=== PATIENT | female | born 1965 | race Caucasian/White ===

== ENCOUNTER → 2019-01-21 | Outpatient (CLI) | payer BC ==
[~2019-01-21] MED LIST: HYDACE5 PO; IBUP400 PO; LEVFLO250 PO; MULVITA PO; OPIBELS PR; PHENA200 PO; RXHYDACE PO; RXPROM25 PO; SULTRIDS PO
[2019-01-23 15:07] LABS: HPV 16 Negative (Negative); HPV 18 Negative (Negative); HPV OTHER HR TYPES Negative (Negative)
== END | disposition home or self-care (01) ==
LOC: LAB SHORT 17:43 → LAB 17:43
PROVIDERS: Obstetrics & Gynecology Gynecology
DX: Z12.4 Encounter for screening for malignant neoplasm of cervix (principal)
CPT/HCPCS: 87624; G0123

== ENCOUNTER 2020-09-06 07:42 | Day surgery (SDC) | payer BC ==
[~2020-09-06] VITALS: Ht 175.3 cm; Wt 69.5 kg
[~2020-09-06 07:42] MED LIST changes: +CALCIUM-MAGNES1 EAC9 PO; +FISH OIL 1,2001 EAC1 PO; +MULTIPLE VITAM1 EACH PO; +PROGESTERONE200 M1 PO; +PSYLLIUM FIBER0.4 GM PO; +VELIVET PO; +VITAMIN D325 MC3 PO
== END 2020-09-06 11:08 | disposition home or self-care (01) ==
LOC: ORSCSDS 07:42
PROVIDERS: Student in an Organized Health Care Education/Training Program
PROC: 0DBL8ZX Excision of Transverse Colon, Via Natural or Artificial Opening Endoscopic, Diagnostic (ICD-10-PCS; principal; 2020-09-06 09:00)
PROC: 0DBP8ZX Excision of Rectum, Via Natural or Artificial Opening Endoscopic, Diagnostic (ICD-10-PCS; principal; 2020-09-06 09:00)
PROC: 0DBK8ZX Excision of Ascending Colon, Via Natural or Artificial Opening Endoscopic, Diagnostic (ICD-10-PCS; principal; 2020-09-06 09:00)
PROC: 0DBN8ZX Excision of Sigmoid Colon, Via Natural or Artificial Opening Endoscopic, Diagnostic (ICD-10-PCS; principal; 2020-09-06 09:00)
DX: Z12.11 Encounter for screening for malignant neoplasm of colon (principal); D12.2 Benign neoplasm of ascending colon; D12.3 Benign neoplasm of transverse colon; D12.5 Benign neoplasm of sigmoid colon; D12.8 Benign neoplasm of rectum; K57.30 Diverticulosis of large intestine without perforation or abscess without bleeding; Z80.0 Family history of malignant neoplasm of digestive organs; F41.9 Anxiety disorder, unspecified
CPT/HCPCS: 84703; 88305; J2704; J7120

== ENCOUNTER 2021-04-27 07:02 | Day surgery (SDC) | payer BC ==
[2021-04-24 09:35] LABS: BASOPHILS ABSOLUTE AUTO 0.08 K/mm3 (0.00-0.23); BASOPHILS PERCENT AUTO 1 % (0-2); EOSINOPHILS ABSOLUTE AUTO 0.14 K/mm3 (0.00-0.68); EOSINOPHILS PERCENT AUTO 1 % (0-6); Hemoglobin 15.5 g/dL (11.5-16.0); IMMATURE GRAN ABSOLUTE AUTO 0.05 K/mm3 (0.00-0.10); IMMATURE GRAN PERCENT AUTO 0 % (0-1); LYMPHOCYTES PERCENT AUTO 22 % (21-46); MONOCYTES ABSOLUTE AUTO 1.12 K/mm3 (0.16-1.47); MONOCYTES PERCENT AUTO 9 % (4-13); Mean Corpuscular HGB 32.9 pg (26.0-34.0); Mean Corpuscular HGB Conc 33.7 g/dL (31.5-36.5); Mean Corpuscular Volume 98 fL (80-100); Mean Platelet Volume 10.5 fL (9.1-12.4); NEUTROPHILS ABSOLUTE AUTO 8.15 K/mm3 (1.96-9.15); NEUTROPHILS PERCENT AUTO 67 % (41-73); Platelet Count 279 K/mm3 (150-400); RDW Coefficient Variation 13.3 % (11.7-14.2); RDW Standard Deviation 48.2 fL (35.1-46.3); Red Blood Cell Count 4.71 M/mm3 (3.80-5.20); White Blood Cell Count 12.24 K/mm3 (4.00-11.30)
[2021-04-24 11:21] LABS: Anion Gap 8 mmol/L (6-16); Blood Urea Nitrogen 7 mg/dL (8-24); Bun/Creatinine Ratio 9.7 (12.0-20.0); CO2, Blood 29 mmol/L (21-32); Calcium, Blood 9.7 mg/dL (8.5-10.1); Chloride, Blood 103 mmol/L (98-108); Creatinine, Blood 0.72 mg/dL (0.40-1.00); Glomerular Filtration Rate >60 (60-); Glucose, Blood 99 mg/dL (70-99); Potassium, Blood 3.8 mmol/L (3.5-5.5); Sodium, Blood 140 mmol/L (136-145)
[~2021-04-27] VITALS: Ht 175.3 cm; Wt 74.0 kg
[~2021-04-27 07:02] MED LIST changes: +ESTROGEN PATCH TOP; +FISH OIL 1 PO; -FISH OIL 1,2001 EAC1 PO; +METO25ER PO
--- NOTE | 2021-04-27 09:34 | NUR ---
04/27/21 0934 Estela Wright PRIOR TO SURGERY START LUGO TABLE IN PLACE & SECURE TO PROTECT PATIENT'S FACE,HEAD, AND INTUBATION TUBE.
[2021-04-27] MEDS ORDERED: IBUP400 PO (17:47)
[2021-04-27] MEDS ORDERED: DOCU100 PO (17:47)
[2021-04-27] MEDS ORDERED: DULCOLAX400 MG/5 M PO (17:48)
[2021-04-27] MEDS ORDERED: Percocet 5-3251 EACH PO (17:49)
[2021-04-27] MEDS ORDERED: SENN187 PO (17:50)
[2021-04-27] MEDS ORDERED: PROM12.5S PR (17:50)
[2021-04-27] MEDS ORDERED: SIME80CH PO (17:51)
--- NOTE | 2021-04-27 18:51 | NUR ---
DISCHARGE SUMMARY PT S/P FOR ROBOTIC LAP HYSTER. C/O GAS PAIN AND TREATED PER EMR. UP WALKING AND VOIDING ON HER OWN. PAIN WELL CONTROLLED WITH ORAL PAIN MEDICATION. 3 LAP SITES WITH DERMABOND CDI. EXHIBITED KNOWLEDGE OF DC INSTRUCTIONS. DC'D HOME WITH .
== END 2021-04-27 18:40 | disposition home or self-care (01) ==
LOC: SURS 07:02 → ORSCMMR 07:02 → ORD 08:30 → ORSCMMR 12:23 → SURS 12:23 → ORSCMMR 18:40 → SURS 18:40 → ORD 05-03 07:30
PROVIDERS: Obstetrics & Gynecology
PROC: 0UT94ZZ Resection of Uterus, Percutaneous Endoscopic Approach (ICD-10-PCS; principal; 2021-04-27 08:30)
PROC: 0UT74ZZ Resection of Bilateral Fallopian Tubes, Percutaneous Endoscopic Approach (ICD-10-PCS; principal; 2021-04-27 08:30)
PROC: 0UT24ZZ Resection of Bilateral Ovaries, Percutaneous Endoscopic Approach (ICD-10-PCS; principal; 2021-04-27 08:30)
PROC: 8E0W8CZ Robotic Assisted Procedure of Trunk Region, Via Natural or Artificial Opening Endoscopic (ICD-10-PCS; principal; 2021-04-27 08:30)
DX: D25.9 Leiomyoma of uterus, unspecified (principal); N92.1 Excessive and frequent menstruation with irregular cycle; N94.6 Dysmenorrhea, unspecified; N85.2 Hypertrophy of uterus; N83.292 Other ovarian cyst, left side; N83.291 Other ovarian cyst, right side; N80.3 Endometriosis of pelvic peritoneum; N83.8 Other noninflammatory disorders of ovary, fallopian tube and broad ligament; K66.0 Peritoneal adhesions (postprocedural) (postinfection); I10 Essential (primary) hypertension; F17.210 Nicotine dependence, cigarettes, uncomplicated; Z79.899 Other long term (current) drug therapy
CPT/HCPCS: 58573; S2900; 36415; 80048; 85025; 86850; 86900; 86901; 88307; 93005; 93010; A9270; J0690; J1100; J2250; J2405; J2704; J3010; J7120

== ENCOUNTER → 2021-07-24 | Outpatient (CLI) | payer BC ==
[~2021-07-24] MED LIST changes: +DOCU100 PO; +DULCOLAX400 MG/5 M PO; +PROM12.5S PR; +Percocet 5-3251 EACH PO; +SENN187 PO; +SIME80CH PO
[2021-07-24 11:47] LABS: Microalbumin, Urine Quant. 8.17 mg/L (0.000-20.000)
[2021-07-27 06:11] LABS: METANEPHRINE, UR 54 ug/L (Undefined)
[2021-07-31 15:07] LABS: DOPAMINE, URINE 107 ug/L (Undefined)
== END | disposition home or self-care (01) ==
LOC: LAB 09:01 → LAB SHORT 09:01
PROVIDERS: Internal Medicine
DX: D35.02 Benign neoplasm of left adrenal gland (principal); R91.8 Other nonspecific abnormal finding of lung field
CPT/HCPCS: 81050; 82043

== ENCOUNTER → 2022-09-28 | Outpatient (CLI) | payer BC ==
[2022-09-28 15:48] LABS: BASOPHILS ABSOLUTE AUTO 0.04 K/mm3 (0.00-0.23); BASOPHILS PERCENT AUTO 0 % (0-2); EOSINOPHILS ABSOLUTE AUTO 0.02 K/mm3 (0.00-0.68); EOSINOPHILS PERCENT AUTO 0 % (0-6); Hematocrit 48.9 % (33.0-51.0); Hemoglobin 17.3 g/dL (11.5-16.0); IMMATURE GRAN ABSOLUTE AUTO 0.06 K/mm3 (0.00-0.10); IMMATURE GRAN PERCENT AUTO 1 % (0-1); LYMPHOCYTES ABSOLUTE AUTO 1.07 K/mm3 (0.84-5.20); LYMPHOCYTES PERCENT AUTO 8 % (21-46); MONOCYTES ABSOLUTE AUTO 1.07 K/mm3 (0.16-1.47); MONOCYTES PERCENT AUTO 8 % (4-13); Mean Corpuscular HGB 32.8 pg (26.0-34.0); Mean Corpuscular HGB Conc 35.4 g/dL (31.5-36.5); Mean Corpuscular Volume 93 fL (80-100); Mean Platelet Volume 10.5 fL (9.1-12.4); NEUTROPHILS ABSOLUTE AUTO 10.89 K/mm3 (1.96-9.15); NEUTROPHILS PERCENT AUTO 83 % (41-73); Platelet Count 215 K/mm3 (150-400); RDW Coefficient Variation 13.8 % (11.7-14.2); Red Blood Cell Count 5.27 M/mm3 (3.80-5.20); White Blood Cell Count 13.15 K/mm3 (4.00-11.30)
[2022-09-28 15:59] LABS: Albumin, Blood 3.9 g/dL (3.4-5.0); Albumin/Globulin Ratio 0.8 (0.8-1.8); Bilirubin, Total 0.7 mg/dL (0.1-1.0); Bun/Creatinine Ratio 12.7 (12.0-20.0); Creatinine, Blood 0.71 mg/dL (0.40-1.00); Globulin, Blood 4.7 g/dL (2.2-4.0); Potassium, Blood 3.7 mmol/L (3.5-5.5); Total Protein, Blood 8.6 g/dL (6.4-8.2)
== END | disposition home or self-care (01) ==
LOC: LAB 15:43 → LAB SHORT 15:43
PROVIDERS: Physician Assistant
DX: R10.9 Unspecified abdominal pain (principal); R82.79 Other abnormal findings on microbiological examination of urine
CPT/HCPCS: 80053; 83690; 85025; 87077; 87086; 87186

== ENCOUNTER 2024-11-17 08:55 | Day surgery (SDC) | payer BC ==
[~2024-11-17] VITALS: Ht 175.3 cm; Wt 60.9 kg
[~2024-11-17 08:55] MED LIST changes: +LOSA50 PO
[2024-11-17] MEDS ORDERED: Midazolam HCL 1 MG/ML 5MLVIAL ONE (10:51)
[2024-11-17] MEDS ORDERED: ePHEDrine Sulfate 50 MG/ML 1ML Injection ONE (11:37)
[2024-11-17 12:24] VITALS: BP 108/64
== END 2024-11-17 12:00 | disposition home or self-care (01) ==
LOC: ORSCSDS 08:55
PROVIDERS: Internal Medicine Gastroenterology
PROC: 0DBN8ZX Excision of Sigmoid Colon, Via Natural or Artificial Opening Endoscopic, Diagnostic (ICD-10-PCS; principal; 2024-11-17 10:15)
PROC: 0DBM8ZX Excision of Descending Colon, Via Natural or Artificial Opening Endoscopic, Diagnostic (ICD-10-PCS; principal; 2024-11-17 10:15)
PROC: 0DBL8ZX Excision of Transverse Colon, Via Natural or Artificial Opening Endoscopic, Diagnostic (ICD-10-PCS; principal; 2024-11-17 10:15)
PROC: 0DBK8ZX Excision of Ascending Colon, Via Natural or Artificial Opening Endoscopic, Diagnostic (ICD-10-PCS; principal; 2024-11-17 10:15)
DX: Z12.11 Encounter for screening for malignant neoplasm of colon (principal); Z86.0101 Personal history of adenomatous and serrated colon polyps; Z80.0 Family history of malignant neoplasm of digestive organs; D12.2 Benign neoplasm of ascending colon; D12.3 Benign neoplasm of transverse colon; D12.4 Benign neoplasm of descending colon; K63.5 Polyp of colon; K57.30 Diverticulosis of large intestine without perforation or abscess without bleeding; K64.8 Other hemorrhoids; F17.210 Nicotine dependence, cigarettes, uncomplicated; Z79.899 Other long term (current) drug therapy
CPT/HCPCS: 88305; J2250; J2704; J7120